=== PATIENT | female | born 1940 | race Caucasian/White ===

== ENCOUNTER 2019-08-04 07:28 | Outpatient (CLI) | payer MEDICARE, OTHER, SELFPAY ==
[2019-08-04 14:39] LABS: Basophils % 0.7 %; Eosinophils # 0.3 10^3/uL (0.0-0.8); Eosinophils % 4.7 %; Hematocrit 43.2 % (37.0-47.0); Hemoglobin 14.1 g/dL (11.5-15.3); Lymphocytes # 1.8 10^3/uL (0.8-4.8); Lymphocytes % 33.5 %; Mean Corpuscular HGB Conc 32.6 g/dL (30.0-36.0); Mean Corpuscular Hemoglobin 28.9 pg (28.0-34.0); Mean Corpuscular Volume 88.5 fL (81-99); Mean Platelet Volume 11.4 fL (7.4-10.4); Monocytes # 0.5 10^3/uL (0.2-0.9); Monocytes % 9.2 %; Neutrophils # 2.8 10^3/uL (1.8-7.7); Neutrophils % 51.7 %; Nucleated Red Blood Cells % 0 %; Platelet Count 297 10^3/cmm (130-400); Red Blood Count 4.88 10^6/uL (4.1-5.3); Red Cell Distribution Width 13.7 % (12.1-15.1); White Blood Count 5.3 10^3/uL (4.0-10.0)
[2019-08-04 16:33] LABS: Carcinoembryonic Antigen 1.7 ng/mL (0.0-4.7)
[2019-08-04 16:46] LABS: Alanine Aminotransferase 19 U/L (0-33); Albumin Level 4.5 g/dL (3.5-5.2); Alkaline Phosphatase 87 IU/L (35-105); Anion Gap 20.6 (5-19); Aspartate Amino Transferase 25 U/L (0-32); Blood Urea Nitrogen 13 mg/dL (8-23); Calcium 9.7 mg/dL (8.5-10.5); Carbon Dioxide 22 mmol/L (22-29); Chloride 98 mmol/L (98-107); Glucose 105 mg/dL (65-115); Osmolality Calculated 279 mOsm/kg (285-295); Potassium 4.6 mmol/L (3.5-5.1); Sodium 136 mmol/L (136-145); Total Bilirubin 0.9 mg/dL (0.15-1.2); Total Protein 7.5 g/dL (6.6-8.7)
== END 2019-08-04 07:29 | disposition home or self-care (01) ==
LOC: ONCMED 14:15
PROVIDERS: Family Provider Family Medicine; PCP Family Medicine; Visit Provider Internal Medicine Medical Oncology
DX: C20 Malignant neoplasm of rectum (principal); D50.9 Iron deficiency anemia, unspecified; E78.5 Hyperlipidemia, unspecified; K21.9 Gastro-esophageal reflux disease without esophagitis; Z95.2 Presence of prosthetic heart valve
CPT/HCPCS: 36415; 80053; 82378; 85025

== ENCOUNTER → 2019-08-21 11:40 | Outpatient (BNVA) | payer MEDICARE, OTHER, SELFPAY | PROVIDERS: PCP Family Medicine; Visit Provider Internal Medicine Cardiovascular Disease | DX: Z95.2 Presence of prosthetic heart valve (principal) | CPT/HCPCS: 85610 ==

== ENCOUNTER → 2019-10-17 10:56 | Outpatient (BNVA) | payer MEDICARE, OTHER, SELFPAY | PROVIDERS: PCP Family Medicine; Visit Provider Internal Medicine Cardiovascular Disease | DX: Z95.2 Presence of prosthetic heart valve (principal) | CPT/HCPCS: 85610 ==

== ENCOUNTER → 2019-10-30 11:15 | Outpatient (BNVA) | payer MEDICARE, OTHER, SELFPAY | PROVIDERS: PCP Family Medicine; Visit Provider Internal Medicine Cardiovascular Disease | DX: Z95.2 Presence of prosthetic heart valve (principal) | CPT/HCPCS: 85610 ==

== ENCOUNTER → 2019-11-06 10:54 | Outpatient (BNVA) | payer MEDICARE, OTHER, SELFPAY | PROVIDERS: PCP Family Medicine; Visit Provider Internal Medicine Cardiovascular Disease | DX: Z95.2 Presence of prosthetic heart valve (principal); I35.8 Other nonrheumatic aortic valve disorders; Z79.01 Long term (current) use of anticoagulants | CPT/HCPCS: 85610 ==

== ENCOUNTER 2020-02-13 13:52 | Outpatient (CLI) | payer MEDICARE, OTHER, SELFPAY ==
[2020-02-13 14:28] LABS: Basophils % 0.8 %; Eosinophils # 0.2 10^3/uL (0.0-0.8); Eosinophils % 3.6 %; Hematocrit 42.4 % (37.0-47.0); Hemoglobin 13.7 g/dL (11.5-15.3); Lymphocytes # 1.6 10^3/uL (0.8-4.8); Lymphocytes % 30.3 %; Mean Corpuscular HGB Conc 32.3 g/dL (30.0-36.0); Mean Corpuscular Hemoglobin 28.8 pg (28.0-34.0); Mean Corpuscular Volume 89.3 fL (81-99); Mean Platelet Volume 10.7 fL (7.4-10.4); Monocytes # 0.4 10^3/uL (0.2-0.9); Monocytes % 6.6 %; Neutrophils % 58.7 %; Nucleated Red Blood Cells % 0 %; Platelet Count 248 10^3/cmm (130-400); Red Blood Count 4.75 10^6/uL (4.1-5.3); Red Cell Distribution Width 13.5 % (12.1-15.1); White Blood Count 5.3 10^3/uL (4.0-10.0)
[2020-02-13 14:46] LABS: Alanine Aminotransferase 29 U/L (0-33); Albumin Level 4.2 g/dL (3.5-5.2); Alkaline Phosphatase 109 IU/L (35-105); Anion Gap 14.6 (5-19); Aspartate Amino Transferase 29 U/L (0-32); Blood Urea Nitrogen 11 mg/dL (8-23); Calcium 8.9 mg/dL (8.5-10.5); Carbon Dioxide 26 mmol/L (22-29); Chloride 99 mmol/L (98-107); Glucose 147 mg/dL (65-115); Osmolality Calculated 282 mOsm/kg (285-295); Potassium 4.6 mmol/L (3.5-5.1); Sodium 135 mmol/L (136-145); Total Bilirubin 0.6 mg/dL (0.15-1.2); Total Protein 7.2 g/dL (6.6-8.7)
--- NOTE | 2020-02-13 17:42 | ONC FU_ITS ---
Dr. Luna Patient Follow-Up Note Patient: Yady Patterson Unit #: [id number]: 1940 Dicatated By: Fer Luna M.D.Date of Visit:Feb 13, 2020 Onc Med Follow-up/Prog Note Chief Complaint: Rectal cancer. 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 In July 2015 she had presented to Dr. Farley with recent onset of rectal bleeding. She had no other associated GI symptoms or other significant complaints. She underwent colonoscopy on 07/24/2015. She was found to have a partially obstructing, large size, malignant appearing mass in the rectum. It was circumferential, measuring 3 x 4 cm. Other findings included 2 small polyps in the distal sigmoid colon and a lesion in the proximal sigmoid colon which was thought to perhaps be an inverted diverticulum, a lipoma, or an unusual haustra. Pathology from the proximal sigmoid colon biopsy showed no mucosal abnormality. The distal sigmoid colon polyp was a tubular adenoma. The rectal mass showed moderately differentiated adenocarcinoma. Contrast enhanced CT abdomen/pelvis on 07/24/2015 was negative for any definite rectal or perirectal abnormalities. There was no evidence of any metastatic disease. Unrelated findings included a large periesophageal hiatal hernia, cholelithiasis, and at L3 vertebral compression fracture. She was referred to Dr. Ruvalcaba in [place]. She was noted to have a large palpable partially obstructing tumor in the distal anterior rectum/anal canal. She had further evaluation with transrectal ultrasound on 08/19/2015. Bimanual exam at that time suggested vaginal involvement, with an area of intense fullness in the area of the tumor on the vaginal side. Ultrasound showed a large tumor from the distal rectum down. It appeared to be at least T3 and even a focal area but was likely felt to be some degree of T4 extension to the vagina. There was no perirectal adenopathy seen. She was subsequently referred here and she underwent neoadjuvant chemoradiation utilizing Xeloda for the chemosensitization. She completed radiation on 10/25/2015 to a total dose of 5040 cGy. At the time she completed treatment, she had become pretty sore in her bottom area, but it resolved uneventfully. During the course of treatment, she did require continual adjustments in her warfarin dosage due to the interaction with Xeloda. Otherwise she tolerated chemotherapy very well. She did develop loose stools towards the end of her radiation, but she had no stomatitis or hand/foot syndrome. She completed radiation on 12/19/2015 she underwent AP resection. The procedure included partial vaginectomy en bloc with the rectal resection. Pathology showed residual low-grade (well differentiated) invasive adenocarcinoma measuring 2.5 x 2.0 x 0.5 cm. The modified tumor regression score was grade 2 with residual carcinoma outgrown by fibrosis. The tumor was noted to invade into but not through the muscularis propria (T2). There was no involvement in 14 lymph nodes. As such her disease post treatment was stage I (ypT2, ypN0, M0). As such, I opted not to attempt postoperative adjuvant chemotherapy. Her medical history is otherwise significant for aortic stenosis for which she underwent aortic valve replacement with a [employer] mechanical valve in April 2007. Her other medical illnesses have been limited to hyperlipidemia and GERD. She has been in excellent general health. A DEXA scan on 08/09/2017 showed evidence of osteoporosis with T score -1.4 in the lumbar spine, -2.6 in the left femoral neck, and -2.3 in the right femoral neck. She is a nonsmoker. INTERIM HISTORY: She had surveillance colonoscopy by Dr. Ruvalcaba on 02/11/2017. There were no abnormal findings. She was recommended to have colonoscopy again in [address] scans on 04/15/2017 showed no evidence of metastatic disease in the chest, abdomen, or pelvis. A large paraesophageal hiatal hernia was noted to be stable. She continued on observation/expectant management. Her surveillance CT scans on 02/02/2019 showed atrophic uterus and ovaries. There was persistent endometrial cavity fluid, but no radiographic evidence of endometrial soft tissue thickening. Overall there was no evidence of neoplastic process in the chest, abdomen, or pelvis. She is seen for a followup visit. She has been feeling good generally. She has good energy and activity tolerance. ECOG score is 0. Appetite also is good. She has no fever, night sweats, or hot flashes. She has had some ongoing problems with depression since her . Her only other significant complaint is that she recently developed some joint changes in her hands. She has a little bit of allergy related sinus symptoms and cough. She does not complain of shortness of breath or chest pain. She has no GI or complaints at this time. She has no focal neurologic symptoms. Medications: Cholecalciferol 1 (2000 Units) Capsule Oral daily, Coumadin (4 mg) Tablet Oral Take as Directed, Coumadin (3 mg) Tablet Oral Take as Directed, LORazepam 1 - 2 (0.5 mg) Tablet Oral t.i.d. PRN, Metoprolol Tartrate 1 Tablet (of 25 mg) Oral b.i.d., Simvastatin 1 Tablet (of 40 mg) Oral daily Allergies: No Known Allergies. Review of Systems: Constitutional - She has good energy and activity tolerance. Appetite is good and weight is stable. No fever, night sweats, or hot flashes. ECOG score is 0, ENMT - She has a little bit of allergy related sinus symptoms. No mouth sores. No sore throat or difficulty swallowing, Hematologic/Lymphatic - She bruises easily, Respiratory - No shortness of breath. She has a little bit of cough. No pleuritic pain or hemoptysis, Cardiovascular - No angina pain. No palpitations, Gastrointestinal - No nausea or vomiting. No heartburn or acid reflux. No diarrhea or constipation. No blood in the stool or black stools, Genitourinary (F) - No dysuria or hematuria. No urinary frequency. No urgency or incontinence, Musculoskeletal - She recently has developed some joint changes in her hands. She has no other joint or bone pain, Integumentary - No skin rash, Neurologic - No headache or dizziness. No numbness or tingling. No other focal neurologic symptoms, Psychiatric - She has had some depression since her . No insomnia. Vital Signs: Performed on Feb 13, 2020 16:14 Height - 63.00 in BP - 170/78 mm(hg) (HIGH) Performed on Feb 13, 2020 15:49 Height - 63.00 in Weight - 159 lbs BSA - 1.75 sq.m BMI - 28.17 Temperature - 97.6 F (LOW) Pulse - 64 /min Respiration - 16 /min BP - 170/100 mm(hg) (HIGH) O2 Sat - 96 % Pain - 0 Physical Examination: Constitutional - She looks good generally, Eyes - Sclerae nonicteric. Conjunctivae clear, ENMT - No lesions noted in the oral cavity, Hematologic/Lymphatic - No cervical, clavicular, or axillary adenopathy, Respiratory - Lungs are clear with good air movement bilaterally, Cardiovascular - Heart rhythm is regular. There is a II/ systolic murmur and there is an accentuated 2nd heart sound. There is no gallop or rub noted, Abdomen - Soft. Liver and spleen are not enlarged. There is no abdominal mass or ascites noted and there is no inguinal adenopathy, Extremities - No edema, Neurologic - No focal neurologic deficits noted. Lab/Imaging: Test performed on Feb 13, 2020 14:05 Sodium 135 mmol/L Potassium 4.6 mmol/L Chloride 99 mmol/L CO2 26 mmol/L Anion Gap 14.6 BUN 11 mg/dL Creatinine 0.9 mg/dL Cr Clearance (Est) 52.1700 mL/min Glucose 147 mg/dL Osmolality - Calculated 282 mOsm/kg Calcium 8.9 mg/dL Protein, Total 7.2 g/dL Albumin 4.2 g/dL Globulin 3.0 g/dL Bilirubin, Total 0.6 mg/dL ALT (SGPT) 29 U/L AST (SGOT) 29 U/L Alkaline Phosphatase 109 IU/L WBC 5.3 10 3/uL RBC 4.75 10 6/uL HGB 13.7 g/dL HCT 42.4 % MCV 89.3 fL MCH 28.8 pg MCHC 32.3 g/dL RDW 13.5 % Platelet Count 248 10 3/cmm MPV 10.7 fL Neutrophils 3.10 10 3/uL Lymphocytes 1.6 10 3/uL Monocytes 0.4 10 3/uL Eosinophils 0.2 10 3/uL Basophils 0.0 10 3/uL Neutrophil % 58.7 % Lymphocyte % 30.3 % Monocyte % 6.6 % Eosinophil % 3.6 % Basophils % 0.8 % NRBC % 0 % Impression: 1. 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 By clinical evaluation her disease appeared to be at least stage IIC (T4, Nx, M0), as there was suspected focal extension to the vagina on her initial evaluation. 2. She was given neoadjuvant chemoradiation utilizing Xeloda for chemosensitization. She completed radiation on 10/25/2015 to a total dose of 5040 cGy. 3. She underwent AP resection on 12/19/2015. Based on that pathology, her disease was posttreatment stage I (ypT2, ypN0, M0). 4. She had associated iron deficiency anemia. Her other medical illnesses include: 5. History of aortic stenosis with [employer] mechanical valve replacement in April 2007. 6. Hyperlipidemia. 7. Hiatal hernia/GERD. 8. History of surgical resection of benign rectal mass in 2007. She has had a good recovery following her surgery in December 2015. As she had posttreatment stage I disease, I opted against any postoperative adjuvant chemotherapy. She is being followed on observation/expectant management. She had negative surveillance colonoscopy on 02/11/2017. Her DEXA scan in August 2017 did show evidence of osteoporosis with mean femoral neck T score -2.4. She declined any further treatment for it. During subsequent follow-up she has been doing well clinically, though she does have elevated blood pressure today. There has been no evidence of recurrence of the rectal cancer. Plan: She remains on observation/expectant management for the rectal cancer. She is due for her annual surveillance CT scans, and those will be scheduled. She is due for her surveillance colonoscopy this year, and she will be scheduling that with Dr. Ruvalcaba or with Dr. Farley. I will just plan to see her again in 1 year. In the meantime, she will follow-up with Dr. Farley for the hypertension. Signed By: Fer Luna M.D. <<Signature on File>>
[2020-02-13 18:10] LABS: Carcinoembryonic Antigen 1.8 ng/mL (0.0-4.7)
== END 2020-02-13 13:53 | disposition home or self-care (01) ==
LOC: ONCMED 13:57
PROVIDERS: PCP Family Medicine; Visit Provider Internal Medicine Medical Oncology
DX: Z08 Encounter for follow-up examination after completed treatment for malignant neoplasm (principal); Z85.048 Personal history of other malignant neoplasm of rectum, rectosigmoid junction, and anus; D50.9 Iron deficiency anemia, unspecified; E78.5 Hyperlipidemia, unspecified; K21.9 Gastro-esophageal reflux disease without esophagitis; Z95.2 Presence of prosthetic heart valve; K44.9 Diaphragmatic hernia without obstruction or gangrene
CPT/HCPCS: 36415; 80053; 82378; 85025; 99214

== ENCOUNTER → 2020-02-26 10:39 | Outpatient (BNVA) | payer MEDICARE, OTHER, SELFPAY | PROVIDERS: PCP Family Medicine; Visit Provider Internal Medicine Cardiovascular Disease | DX: Z95.2 Presence of prosthetic heart valve (principal) | CPT/HCPCS: 85610 ==

== ENCOUNTER 2020-03-04 08:51 | Outpatient (CLI) | payer MEDICARE, OTHER, SELFPAY ==
--- NOTE | 2020-03-04 09:00 | CT_ITS ---
WS: [id number] CT CHEST, ABDOMEN AND PELVIS WITH CONTRAST. HISTORY: RECTAL CANCER TECHNIQUE: Contiguous 5 mm axial imaging performed through the chest, abdomen and pelvis with IV cont rast, oral contrast has been provided. Coronal and sagittal reformats chest. Coronal and sagittal ref ormats through the abdomen and pelvis. All CT scans at [facility] use at least one of the se dose optimization techniques: automated exposure control; mA and/or kV adjustment per patient size (includes targeted exams where dose is matched to clinical indication); or iterative reconstruction. CONTRAST: Omnipaque 300; 95 mL IV. DLP: 2157.33 mGycm COMPARISON: 02/02/2019 and 04/20/[address]: Well aerated lungs. No pulmonary mass or nodule. Subsegmental linear atelectasis in the yasir gula. RIGHT lung benign calcified granulomata. Moderate atherosclerosis thoracic aorta. Normal size p ulmonary artery. Heart size is normal. No pericardial or pleural effusion. Prior median sternotomy. Large incarcerated hiatal hernia. Subcentimeter mediastinal and hilar lymph nodes with no progression . Mild increase in the thoracic kyphosis. Osteopenia with osteoblastic or osteolytic disease. Abdomen CT: No evidence for metastatic disease to the liver. Areas of hepatic steatosis along the fal ciform ligament. Splenic granuloma. Cholelithiasis without acute cholecystitis. No adrenal mass. Nega tive pancreas. No renal obstruction or solid mass. Exophytic cortical cyst measures 6 mm from the mid kidney. Mild atherosclerosis aorta. No adenopathy or ascites. No omental disease. No GI tract obstruction. LEFT lower quadrant colostomy. There is a parastomal hernia containing small bowel. There is contrast within the small bowel loop with no obstruction. Similar findings seen on t he prior study. Fat-containing 1.4 cm nodule in the region of the cecum is probably a lipoma associat ed with the ileocecal valve. Pelvic CT: Uterus is atrophic and small caliber. Distended endometrium with fluid. This was seen on t he prior examinations. May be a component of this cervical stenosis related to the radiation. These f indings have been present for several years. Mild anterior wedging of L3. Degenerative disc disease is moderate at L4-5 and L5-S1. CT/CT chest abd pel w con* IMPRESSION: 1. No evidence for metastatic disease within the chest, abdomen or pelvis. 2. LEFT lower quadrant colostomy with small bowel parastomal hernia. No obstru ction. 3. Cholelithiasis without acute cholecystitis. 4. Atrophic uterus with distended endometrium with fluid. Similar to prior reji dies. Cervical stenosis secondary to prior rectal radiation treatment may be pr esent. 5. Large incarcerated hiatal hernia.
[2020-03-04] MEDS: iohexol 300 mg/mL 50 mL Btl PO (09:29)
[2020-03-04] MEDS: iohexol 300 mg/mL 100 mL Btl IV (10:41)
== END 2020-03-04 08:52 | disposition home or self-care (01) ==
LOC: RADWPI 08:55
PROVIDERS: PCP Family Medicine; Visit Provider Internal Medicine Medical Oncology
DX: C20 Malignant neoplasm of rectum (principal); K44.9 Diaphragmatic hernia without obstruction or gangrene; N85.8 Other specified noninflammatory disorders of uterus; M48.02 Spinal stenosis, cervical region; K80.20 Calculus of gallbladder without cholecystitis without obstruction; K43.5 Parastomal hernia without obstruction or gangrene; Z95.2 Presence of prosthetic heart valve
CPT/HCPCS: 71260; 74177; 85610; Q9967

== ENCOUNTER → 2020-10-21 09:35 | Outpatient (BNVA) | payer MEDICARE, OTHER, SELFPAY | PROVIDERS: PCP Family Medicine; Visit Provider Internal Medicine Cardiovascular Disease | DX: Z79.01 Long term (current) use of anticoagulants (principal); Z95.2 Presence of prosthetic heart valve | CPT/HCPCS: 85610 ==

== ENCOUNTER 2021-02-19 12:51 | Outpatient (CLI) | payer MEDICARE, OTHER, SELFPAY ==
[2021-02-19 13:27] LABS: Basophils % 0.5 %; Eosinophils # 0.2 10^3/uL (0.0-0.8); Eosinophils % 3.3 %; Hematocrit 40.1 % (37.0-47.0); Hemoglobin 13.2 g/dL (11.5-15.3); Lymphocytes # 2.4 10^3/uL (0.8-4.8); Lymphocytes % 41.9 %; Mean Corpuscular HGB Conc 32.9 g/dL (30.0-36.0); Mean Corpuscular Hemoglobin 28.5 pg (28.0-34.0); Mean Corpuscular Volume 86.6 fl (81-99); Mean Platelet Volume 10.4 fL (7.4-10.4); Monocytes # 0.5 10^3/uL (0.2-0.9); Monocytes % 7.9 %; Neutrophils # 2.69 10^3/uL (1.8-7.7); Neutrophils % 46.1 %; Nucleated Red Blood Cells % 0 %; Platelet Count 239 10^3/cmm (130-400); Red Blood Count 4.63 10^6/uL (4.1-5.3); Red Cell Distribution Width 13.6 % (12.1-15.1); White Blood Count 5.8 10^3/uL (4.0-10.0)
[2021-02-19 14:18] LABS: Alanine Aminotransferase 26 U/L (0-33); Albumin Level 4.3 g/dL (3.5-5.2); Alkaline Phosphatase 111 IU/L (35-105); Anion Gap 13.2 (5-19); Aspartate Amino Transferase 25 U/L (0-32); Blood Urea Nitrogen 10 mg/dL (8-23); Calcium 8.6 mg/dL (8.5-10.5); Carbon Dioxide 27 mmol/L (22-29); Chloride 100 mmol/L (98-107); Globulin 2.6 g/dL (1.3-4.6); Glucose 82 mg/dL (65-115); Osmolality Calculated 280 mOsm/kg (285-295); Potassium 4.2 mmol/L (3.5-5.1); Sodium 136 mmol/L (136-145); Total Bilirubin 0.9 mg/dL (0.15-1.2); Total Protein 6.9 g/dL (6.6-8.7)
[2021-02-19 16:01] LABS: Carcinoembryonic Antigen 1.9 ng/mL (0.0-4.7)
--- NOTE | 2021-02-22 16:59 | ONC FU_ITS ---
Dr. Luna Patient Follow-Up Note Patient: Yady Patterson Unit #: [id number]: 1940 Dicatated By: Fer Luna M.D.Date of Visit:Feb 19, 2021 Onc Med Follow-up/Prog Note Chief Complaint: Rectal cancer. 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 In July 2015 she had presented to Dr. Farley with recent onset of rectal bleeding. She had no other associated GI symptoms or other significant complaints. She underwent colonoscopy on 07/24/2015. She was found to have a partially obstructing, large size, malignant appearing mass in the rectum. It was circumferential, measuring 3 x 4 cm. Other findings included 2 small polyps in the distal sigmoid colon and a lesion in the proximal sigmoid colon which was thought to perhaps be an inverted diverticulum, a lipoma, or an unusual haustra. Pathology from the proximal sigmoid colon biopsy showed no mucosal abnormality. The distal sigmoid colon polyp was a tubular adenoma. The rectal mass showed moderately differentiated adenocarcinoma. Contrast enhanced CT abdomen/pelvis on 07/24/2015 was negative for any definite rectal or perirectal abnormalities. There was no evidence of any metastatic disease. Unrelated findings included a large periesophageal hiatal hernia, cholelithiasis, and at L3 vertebral compression fracture. She was referred to Dr. Ruvalcaba in [place]. She was noted to have a large palpable partially obstructing tumor in the distal anterior rectum/anal canal. She had further evaluation with transrectal ultrasound on 08/19/2015. Bimanual exam at that time suggested vaginal involvement, with an area of intense fullness in the area of the tumor on the vaginal side. Ultrasound showed a large tumor from the distal rectum down. It appeared to be at least T3 and even a focal area but was likely felt to be some degree of T4 extension to the vagina. There was no perirectal adenopathy seen. She was subsequently referred here and she underwent neoadjuvant chemoradiation utilizing Xeloda for the chemosensitization. She completed radiation on 10/25/2015 to a total dose of 5040 cGy. At the time she completed treatment, she had become pretty sore in her bottom area, but it resolved uneventfully. During the course of treatment, she did require continual adjustments in her warfarin dosage due to the interaction with Xeloda. Otherwise she tolerated chemotherapy very well. She did develop loose stools towards the end of her radiation, but she had no stomatitis or hand/foot syndrome. She completed radiation on 12/19/2015 she underwent AP resection. The procedure included partial vaginectomy en bloc with the rectal resection. Pathology showed residual low-grade (well differentiated) invasive adenocarcinoma measuring 2.5 x 2.0 x 0.5 cm. The modified tumor regression score was grade 2 with residual carcinoma outgrown by fibrosis. The tumor was noted to invade into but not through the muscularis propria (T2). There was no involvement in 14 lymph nodes. As such her disease post treatment was stage I (ypT2, ypN0, M0). As such, I opted not to attempt postoperative adjuvant chemotherapy. Her medical history is otherwise significant for aortic stenosis for which she underwent aortic valve replacement with a [employer] mechanical valve in April 2007. Her other medical illnesses have been limited to hyperlipidemia and GERD. She has been in excellent general health. A DEXA scan on 08/09/2017 showed evidence of osteoporosis with T score -1.4 in the lumbar spine, -2.6 in the left femoral neck, and -2.3 in the right femoral neck. She is a nonsmoker. INTERIM HISTORY: She had surveillance colonoscopy by Dr. Ruvalcaba on 02/11/2017. There were no abnormal findings. She was recommended to have colonoscopy again in [address] scans on 04/15/2017 showed no evidence of metastatic disease in the chest, abdomen, or pelvis. A large paraesophageal hiatal hernia was noted to be stable. CT scans on 02/02/2019 showed atrophic uterus and ovaries. There was persistent endometrial cavity fluid, but no radiographic evidence of endometrial soft tissue thickening. Overall there was no evidence of neoplastic process in the chest, abdomen, or pelvis. Surveillance CT scans on 03/04/2020 showed no evidence for metastatic disease within the chest, abdomen, or pelvis. She also had negative surveillance colonoscopy in 2019. She is seen for a followup visit. She has been feeling good generally. She has good energy and activity tolerance. ECOG score is 0. Her appetite is good. She has no fever or night sweats. She has occasional allergy related sinus symptoms. She has not had sore mouth or throat. She does have some cough associated with the allergies. She does not complain of shortness of breath or chest pain. She has no GI or complaints. She has joint pain, mainly in her hands. She does not complain of headache or dizziness, and she has no focal neurologic symptoms. Medications: Cholecalciferol 1 (2000 Units) Capsule Oral daily, Coumadin (4 mg) Tablet Oral Take as Directed, Coumadin (3 mg) Tablet Oral Take as Directed, LORazepam 1 - 2 (0.5 mg) Tablet Oral t.i.d. PRN, Metoprolol Tartrate 1 Tablet (of 25 mg) Oral b.i.d., Simvastatin 1 Tablet (of 40 mg) Oral daily Allergies: No Known Allergies. Vital Signs: Performed on Feb 19, 2021 14:50 Height - 63.00 in Weight - 159.6 lbs (HIGH) BSA - 1.76 sq.m BMI - 28.27 Temperature - 97.8 F (LOW) Pulse - 78 /min Respiration - 18 /min BP - 170/85 mm(hg) (HIGH) O2 Sat - 96 % Pain - 0 Fatigue - 0 Physical Examination: Constitutional - She looks good generally, Eyes - Sclerae nonicteric. Conjunctivae clear, ENMT - No lesions noted in the oral cavity, Hematologic/Lymphatic - No cervical, clavicular, or axillary adenopathy, Respiratory - Lungs are clear with good air movement bilaterally, Cardiovascular - Heart rhythm is regular. There is a II/ systolic murmur. There is no gallop or rub noted, Abdomen - Soft. Liver and spleen are not enlarged. There is no abdominal mass or ascites noted and there is no inguinal adenopathy, Extremities - No edema, Neurologic - No focal neurologic deficits noted. Lab/Imaging: Test performed on Feb 19, 2021 13:11 Sodium 136 mmol/L Potassium 4.2 mmol/L Chloride 100 mmol/L CO2 27 mmol/L Anion Gap 13.2 BUN 10 mg/dL Creatinine 0.7 mg/dL Cr Clearance (Est) 70.81 mL/min Glucose 82 mg/dL Osmolality - Calculated 280 mOsm/kg Calcium 8.6 mg/dL Protein, Total 6.9 g/dL Albumin 4.3 g/dL Globulin 2.6 g/dL Bilirubin, Total 0.9 mg/dL ALT (SGPT) 26 U/L AST (SGOT) 25 U/L Alkaline Phosphatase 111 IU/L WBC 5.8 10 3/uL RBC 4.63 10 6/uL HGB 13.2 g/dL HCT 40.1 % MCV 86.6 fl MCH 28.5 pg MCHC 32.9 g/dL RDW 13.6 % Platelet Count 239 10 3/cmm MPV 10.4 fL Neutrophils 2.69 10 3/uL Lymphocytes 2.4 10 3/uL Monocytes 0.5 10 3/uL Eosinophils 0.2 10 3/uL Basophils 0.0 10 3/uL Neutrophil % 46.1 % Lymphocyte % 41.9 % Monocyte % 7.9 % Eosinophil % 3.3 % Basophils % 0.5 % NRBC % 0 % CEA 1.9 ng/mL Problem List: 1. Moderately differentiated adenocarcinoma of the distal rectum. By clinical evaluation her disease appeared to be at least stage IIC (T4, Nx, M0), as there was suspected focal extension to the vagina on her initial evaluation. 2. History of aortic stenosis with [employer] mechanical valve replacement in April 2007. 3. Hyperlipidemia. 4. Hiatal hernia/GERD. 5. History of surgical resection of benign rectal mass in 2007. 6. Her DEXA scan in August 2017 showed evidence of osteoporosis with mean femoral neck T score -2.4. She declined any further treatment for it. 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 By clinical evaluation her disease appeared to be at least stage IIC (T4, Nx, M0), as there was suspected focal extension to the vagina on her initial evaluation. She was given neoadjuvant chemoradiation utilizing Xeloda for chemosensitization. She completed radiation on 10/25/2015 to a total dose of 5040 cGy. She then underwent AP resection on 12/19/2015. Based on that pathology, her disease was posttreatment stage I (ypT2, ypN0, M0). As she had posttreatment stage I disease, I opted against any postoperative adjuvant chemotherapy. She has continued expectant management for the rectal cancer following the surgery. She has been doing well clinically. She is now 5 years out from completion of her treatment with no evidence of recurrence of the rectal cancer and she can just continue regular follow-up with Dr. Farley. I will see her again as needed. Signed By: Fer Luna M.D. <<Signature on File>>
== END 2021-02-19 12:52 | disposition home or self-care (01) ==
LOC: ONCMED 12:54
PROVIDERS: PCP Family Medicine; Visit Provider Internal Medicine Medical Oncology
DX: Z08 Encounter for follow-up examination after completed treatment for malignant neoplasm (principal); Z85.048 Personal history of other malignant neoplasm of rectum, rectosigmoid junction, and anus; E78.5 Hyperlipidemia, unspecified; K44.9 Diaphragmatic hernia without obstruction or gangrene; K21.9 Gastro-esophageal reflux disease without esophagitis; M81.0 Age-related osteoporosis without current pathological fracture; I70.0 Atherosclerosis of aorta; Z79.899 Other long term (current) drug therapy; Z92.21 Personal history of antineoplastic chemotherapy; Z92.3 Personal history of irradiation
CPT/HCPCS: 36415; 80053; 82378; 85025; 99214

== ENCOUNTER 2021-06-02 11:12 | Emergency (ER) | payer OTHER, SELFPAY ==
[2021-06-02 11:27] VITALS: BP 151/79; PULSE 70; RESP 16; TEMP 36.4; O2SAT 92; BMI 27.3
--- NOTE | 2021-06-02 11:34 | ED_ITS ---
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 Patient states she was coming into the emergency department and accidentally tripped over a sign. She reports falling onto her face/hands and sustained abrasions to these areas. She does not really have any pain or discomfort at this time. Last tetanus is unknown. She does not complain of neck or back pain. Patient states she does take warfarin daily. MD complaint: fall Onset (ago): minute(s) Fall from: standing Fall witnessed: yes, by family and yes, by bystander Place fall occurred: work Loss of consciousness: None Prolonged down time: no Symptoms prior to fall: none Context: tripped/slipped Location of injury: face Location of injury - extremities: Right: hand Associated symptoms-after fall: Reports no associated symptoms; Denies chest pain, confusion, headache(s), lightheadedness or vertigo Review of Systems Const: Denies: fever(s) or fatigue Eyes: Denies: change in vision or blurry vision Card: Denies: chest pain, palpitations, lightheadedness, syncope or pre- syncope Resp: Denies: dyspnea GI: Denies: nausea or vomiting Skin/Breast: Reports: other (abrasions) Neuro: Denies: headache(s), numbness in extremities, weakness in extremities, sensory changes, lack of coordination, frequent falls, dizziness, vertigo, confusion, behavioral changes, Slurred speech present, difficulty communicating thoughts or seizure-like activity [facility] ED PFSH: Medical History (Updated 06/02/21 @ 12:19 by TONEY Naidu) HTN (hypertension) Surgical History Aortic valve replaced Family History Mother Hypertension Social History Smoking and tobacco status: never smoked Physical Exam Const: COMMON NORMALS: no acute distress, average body habitus, patient oriented x3, no limitations, healthy appearing, alert and well nourished GENERAL APPEARANCE: cooperative ORIENTATION/CONSCIOUSNESS: Yes awake, Yes oriented to person, Yes oriented to place and Yes oriented to time HENMT: COMMON NORMALS: normocephalic and external ears normal HEAD & SCALP: normal to inspection and normocephalic FACE & SINUS: other (abrasions to forehead and bridge of nose) NOSE: Normal septum present and Other nasal findings present (no bony tenderness; nasal bridge abrasion) EXTERNAL EAR: Yes external ears normal MOUTH: other (no intraoral injuries noted) Eye: GENERAL EYE: appearance normal, both eyes and all related structures Neck/C-Spine: COMMON NORMALS: full ROM GENERAL: Yes normal visual inspection CERVICAL SPINE: Yes cervical ROM normal, No pain with cervical ROM, No Cervical spine tenderness, No step off deformity and No Paracervical muscle tenderness Chest: COMMONS NORMALS: normal inspection of the chest and normal palpation of entire chest wall Resp: COMMON NORMALS: normal respiratory effort and clear to auscultation bilaterally AUSCULTATION: clear to auscultation bilaterally Cardio: COMMON NORMALS: regular rate and regular rhythm RATE: regular rate RHYTHM: regular rhythm Back/Pelvis: COMMON NORMALS: thoracic and lumbar spine normal to inspection, no thoracic nor lumbar tenderness and thoraco-lumbar ROM normal Extremity: COMMON NORMALS: normal to inspection and full ROM GENERAL: Yes normal exam except as noted Neuro: LOGAN COMA SCALE: document GCS findings [place] coma scale eye opening: Spontaneous [place] coma scale verbal response: Orientated [place] coma scale motor response: Obey commands Logan coma scale total score: 15 COMMON NORMALS: patient oriented x3, moves all extremities, no focal motor deficits, no sensory deficits noted and gait normal SENSORIUM/ORIENTATION: Yes alert, Yes oriented to person, Yes oriented to place and Yes oriented to time Skin: TRAUMA: abrasion (R palmar hand, forehead, nose) and no lacerations Course Vital Signs: Vital signs: Vital Signs Temperature 97.5 F L 06/02/21 11:36 Pulse Rate 70 06/02/21 11:36 Respiratory Rate 16 06/02/21 11:36 Blood Pressure 151/79 06/02/21 11:36 Pulse Oximetry 92 06/02/21 11:36 MDM - Fall Medical Decision Making Patient here with abrasions to her forehead, nose, and right hand following a fall. Patient is not having a headache, neck pain, back pain. She has been ambulatory without difficulty since the fall. Patient is on Warfarin so I did go ahead and elect to CT her head which was negative. Abrasions were cleaned and dressed. Wound care discussed at home. Tetanus was updated. Patient is stable for DC with return to ED precautions. Lab Data Radiology Impressions Head CT 06/02/21 11:38 IMPRESSION: 1. No evidence of intracranial hemorrhage or mass effect. 2. Mild small vessel changes. Mild parenchymal volume loss. 3. No acute intracranial findings. Discharge Plan Discharge Patient Disposition: Home Clinical Impression: Fall from slip, trip, or stumble Qualifiers: Encounter type: initial encounter Qualified Code(s): W01.0XXA - Fall on same level from slipping, tripping and stumbling without subsequent striking against object, initial encounter Abrasion of face Qualifiers: Encounter type: initial encounter Qualified Code(s): S00.81XA - Abrasion of other part of head, initial encounter Abrasion of hand, right Qualifiers: Encounter type: initial encounter Qualified Code(s): S60.511A - Abrasion of right hand, initial encounter Condition: Stable Prescriptions: No Action simvastatin 40 mg tablet 40 mg PO DAILY 0RF metoprolol tartrate 25 mg tablet 25 mg PO BID 0RF rabeprazole 20 mg tablet,delayed release (DR/EC) 20 mg PO DAILY 0RF cholecalciferol (vitamin D3) 25 mcg (1,000 unit) capsule 1,000 unit PO DAILY 0RF citalopram 10 mg tablet 10 mg PO DAILY 0RF alprazolam [Xanax] 0.25 mg tablet 0.25 mg PO DAILY PRN0RF warfarin 1 mg tablet 1 mg PO DIRECTED 0RF Protocol: Dose Management Condition: Wednesday Dose/Route: 4 mg Instruction: 1 x 4 mg tablet Condition: Wednesday Dose/Route: 4 mg Instruction: 1 x 4 mg tablet Condition: Wednesday Dose/Route: 4 mg Instruction: 1 x 4 mg tablet Condition: Wednesday Dose/Route: 4 mg Instruction: 1 x 4 mg tablet Condition: Dose/Route: 4 mg Instruction: 1 x 4 mg tablet Condition: Wednesday Dose/Route: 4 mg Instruction: 1 x 4 mg tablet Condition: Wednesday Dose/Route: 4 mg Instruction: 1 x 4 mg tablet Protocol Text: Adjustment Start Date: Wednesday05/28/21 INR Value: 2.1 INR Date: 05/26/21 Recheck Date: 06/04/21 warfarin 4 mg tablet 4 mg PO DAILY Qty: 30 6RF Protocol: Dose Management Condition: Wednesday Dose/Route: 4 mg Instruction: 1 x 4 mg tablet Condition: Wednesday Dose/Route: 4 mg Instruction: 1 x 4 mg tablet Condition: Wednesday Dose/Route: 4 mg Instruction: 1 x 4 mg tablet Condition: Wednesday Dose/Route: 4 mg Instruction: 1 x 4 mg tablet Condition: Dose/Route: 4 mg Instruction: 1 x 4 mg tablet Condition: Wednesday Dose/Route: 4 mg Instruction: 1 x 4 mg tablet Condition: Wednesday Dose/Route: 4 mg Instruction: 1 x 4 mg tablet Protocol Text: Adjustment Start Date: Wednesday05/28/21 INR Value: 2.1 INR Date: 05/26/21 Recheck Date: 06/04/21 warfarin 3 mg tablet 3 mg PO DIRECTED Qty: 90 3RF Protocol: Dose Management Condition: Wednesday Dose/Route: 4 mg Instruction: 1 x 4 mg tablet Condition: Wednesday Dose/Route: 4 mg Instruction: 1 x 4 mg tablet Condition: Wednesday Dose/Route: 4 mg Instruction: 1 x 4 mg tablet Condition: Wednesday Dose/Route: 4 mg Instruction: 1 x 4 mg tablet Condition: Dose/Route: 4 mg Instruction: 1 x 4 mg tablet Condition: Wednesday Dose/Route: 4 mg Instruction: 1 x 4 mg tablet Condition: Wednesday Dose/Route: 4 mg Instruction: 1 x 4 mg tablet Protocol Text: Adjustment Start Date: Wednesday05/28/21 INR Value: 2.1 INR Date: 05/26/21 Recheck Date: 06/04/21 Rx Instructions: Take 1 tablet by mouth as directed; based on INR results Discharge Orders: Discharge ED (Routine); Ordered 06/02/21 Ordered By: Keli Higgins Referrals: Nj Farley MD [Primary Care Provider] - Coding Level of Care Code ED Card Mounter for Paty Pena
[2021-06-02 11:36] VITALS: BP 151/79; PULSE 70; RESP 16; TEMP 36.4; O2SAT 92
--- NOTE | 2021-06-02 11:38 | CT_ITS ---
WS: [id number] CT HEAD TECHNIQUE: Noncontrast CT of the head obtained from the skullbase to the vertex. CLINICAL INFORMATION: trauma COMPARISON: 2006 DLP: 838.[address] scans at [facility] use at least one of these dose optimization techniques: automated e xposure control; mA and/or kV adjustment per patient size (includes targeted exams where dose is matc hed to clinical indication); or iterative reconstruction. FINDINGS: No evidence of intracranial hemorrhage or mass effect. Ventricular system and basal cisterns are to nt. Mild small vessel changes with mild parenchymal volume loss. No extra-axial fluid collections. No evidence of mass or mass effect. Normal sandoval-white differentiation. Mild mucosal thickening paranasal sinuses and RIGHT sphenoid sinus. Mastoid air cells are well aerate d. CT/CT head wo con* [id number] IMPRESSION: 1. No evidence of intracranial hemorrhage or mass effect. 2. Mild small vessel changes. Mild parenchymal volume loss. 3. No acute intracranial findings.
[2021-06-02] MEDS: tetanus-diphtheria tox (adult) 0.5 mL SDV IM (11:44)
== END 2021-06-02 12:33 | disposition home or self-care (01) ==
PROVIDERS: Emergency Provider Physician Assistant; PCP Family Medicine
DX: S00.81XA Abrasion of other part of head, initial encounter (principal); S60.511A Abrasion of right hand, initial encounter; Z79.01 Long term (current) use of anticoagulants; W18.09XA Striking against other object with subsequent fall, initial encounter; Y92.239 Unspecified place in hospital as the place of occurrence of the external cause; Z23 Encounter for immunization
CPT/HCPCS: 70450; 90471; 90714; 99282

== ENCOUNTER → 2021-07-07 08:25 | Outpatient (BNVA) | payer MEDICARE, OTHER, SELFPAY | PROVIDERS: PCP Family Medicine; Visit Provider Internal Medicine Cardiovascular Disease | DX: I35.9 Nonrheumatic aortic valve disorder, unspecified (principal); Z95.2 Presence of prosthetic heart valve; Z79.01 Long term (current) use of anticoagulants | CPT/HCPCS: 36415; 85610 ==

== ENCOUNTER → 2021-07-18 13:25 | Outpatient (BNVA) | payer MEDICARE, OTHER, SELFPAY | PROVIDERS: PCP Family Medicine; Visit Provider Internal Medicine Cardiovascular Disease | DX: Z79.01 Long term (current) use of anticoagulants (principal) ==

== ENCOUNTER → 2021-07-22 16:37 | Outpatient (BNVA) | payer MEDICARE, OTHER, SELFPAY | PROVIDERS: PCP Family Medicine; Visit Provider Internal Medicine Cardiovascular Disease | DX: Z79.01 Long term (current) use of anticoagulants (principal) ==

== ENCOUNTER → 2021-07-31 09:16 | Outpatient (BNVA) | payer MEDICARE, OTHER, SELFPAY | PROVIDERS: PCP Family Medicine; Visit Provider Internal Medicine Cardiovascular Disease | DX: Z79.01 Long term (current) use of anticoagulants (principal) ==

== ENCOUNTER → 2021-08-06 12:52 | Outpatient (BNVA) | payer MEDICARE, OTHER, SELFPAY | PROVIDERS: PCP Family Medicine; Visit Provider Internal Medicine Cardiovascular Disease | DX: Z79.01 Long term (current) use of anticoagulants (principal) ==

== ENCOUNTER → 2021-08-15 10:22 | Outpatient (BNVA) | payer MEDICARE, OTHER, SELFPAY | PROVIDERS: PCP Family Medicine; Visit Provider Internal Medicine Cardiovascular Disease | DX: Z79.01 Long term (current) use of anticoagulants (principal) ==

== ENCOUNTER → 2021-08-18 09:14 | Outpatient (BNVA) | payer MEDICARE, OTHER, SELFPAY | PROVIDERS: PCP Family Medicine; Visit Provider Internal Medicine Cardiovascular Disease | DX: Z79.01 Long term (current) use of anticoagulants (principal) | CPT/HCPCS: 85610 ==

== ENCOUNTER → 2021-08-28 14:59 | Outpatient (BNVA) | payer MEDICARE, OTHER, SELFPAY | PROVIDERS: PCP Family Medicine; Visit Provider Internal Medicine Cardiovascular Disease | DX: Z79.01 Long term (current) use of anticoagulants (principal) ==

== ENCOUNTER → 2021-09-05 10:25 | Outpatient (BNVA) | payer MEDICARE, OTHER, SELFPAY | PROVIDERS: PCP Family Medicine; Visit Provider Internal Medicine Cardiovascular Disease | DX: Z79.01 Long term (current) use of anticoagulants (principal) ==

== ENCOUNTER → 2021-09-10 08:02 | Outpatient (BNVA) | payer MEDICARE, OTHER, SELFPAY | PROVIDERS: PCP Family Medicine; Visit Provider Internal Medicine Cardiovascular Disease | DX: Z79.01 Long term (current) use of anticoagulants (principal) ==

== ENCOUNTER → 2021-09-17 09:40 | Outpatient (BNVA) | payer MEDICARE, OTHER, SELFPAY | PROVIDERS: PCP Family Medicine; Visit Provider Internal Medicine Cardiovascular Disease | DX: Z79.01 Long term (current) use of anticoagulants (principal) ==

== ENCOUNTER → 2021-09-24 16:35 | Outpatient (BNVA) | payer MEDICARE, OTHER, SELFPAY | PROVIDERS: PCP Family Medicine; Visit Provider Internal Medicine Cardiovascular Disease | DX: Z79.01 Long term (current) use of anticoagulants (principal) ==

== ENCOUNTER → 2021-10-02 09:36 | Outpatient (BNVA) | payer MEDICARE, OTHER, SELFPAY | PROVIDERS: PCP Family Medicine; Visit Provider Internal Medicine Cardiovascular Disease | DX: Z79.01 Long term (current) use of anticoagulants (principal) ==

== ENCOUNTER → 2021-10-10 10:28 | Outpatient (BNVA) | payer MEDICARE, OTHER, SELFPAY | PROVIDERS: PCP Family Medicine; Visit Provider Internal Medicine Cardiovascular Disease | DX: Z79.01 Long term (current) use of anticoagulants (principal) ==

== ENCOUNTER → 2021-10-15 08:55 | Outpatient (BNVA) | payer MEDICARE, OTHER, SELFPAY | PROVIDERS: PCP Family Medicine; Visit Provider Internal Medicine Cardiovascular Disease | DX: Z79.01 Long term (current) use of anticoagulants (principal) ==

== ENCOUNTER → 2021-10-22 09:16 | Outpatient (BNVA) | payer MEDICARE, OTHER, SELFPAY | PROVIDERS: PCP Family Medicine; Visit Provider Internal Medicine Cardiovascular Disease | DX: Z79.01 Long term (current) use of anticoagulants (principal) ==

== ENCOUNTER → 2021-10-28 10:29 | Outpatient (BNVA) | payer MEDICARE, OTHER, SELFPAY | PROVIDERS: PCP Family Medicine; Visit Provider Internal Medicine Cardiovascular Disease | DX: Z79.01 Long term (current) use of anticoagulants (principal) ==

== ENCOUNTER → 2021-12-15 09:47 | Outpatient (BNVA) | payer MEDICARE, OTHER, SELFPAY | PROVIDERS: PCP Family Medicine; Visit Provider Internal Medicine Cardiovascular Disease | DX: Z95.2 Presence of prosthetic heart valve (principal) | CPT/HCPCS: 85610 ==

== ENCOUNTER 2022-03-02 08:10 | Outpatient (CLI) | payer MEDICARE, OTHER, SELFPAY ==
[2022-03-02 08:43] LABS: Prothrombin Time (Patient) 48.2 Seconds (12.0-15.1)
[2022-03-02 08:55] LABS: INR 5.23 (0.83-1.21)
== END 2022-03-02 08:11 | disposition home or self-care (01) ==
LOC: LAB 08:13
PROVIDERS: PCP Family Medicine; Visit Provider Internal Medicine Cardiovascular Disease
DX: Z95.2 Presence of prosthetic heart valve (principal)
CPT/HCPCS: 85610

== ENCOUNTER → 2022-05-18 09:30 | Outpatient (BNVA) | payer MEDICARE, OTHER, SELFPAY | PROVIDERS: PCP Family Medicine; Visit Provider Internal Medicine Cardiovascular Disease | DX: Z95.2 Presence of prosthetic heart valve (principal); I10 Essential (primary) hypertension; E78.5 Hyperlipidemia, unspecified | CPT/HCPCS: 99214 ==

== ENCOUNTER → 2022-10-12 10:15 | Outpatient (BNVA) | payer MEDICARE, OTHER, SELFPAY | PROVIDERS: PCP Family Medicine; Visit Provider Internal Medicine Cardiovascular Disease | DX: Z95.2 Presence of prosthetic heart valve (principal) | CPT/HCPCS: 85610 ==

== ENCOUNTER → 2022-11-16 13:49 | Outpatient (BNVA) | payer MEDICARE, OTHER, SELFPAY | PROVIDERS: PCP Family Medicine; Visit Provider Internal Medicine Cardiovascular Disease | DX: E78.5 Hyperlipidemia, unspecified (principal); Z95.2 Presence of prosthetic heart valve; I10 Essential (primary) hypertension; Z79.01 Long term (current) use of anticoagulants | CPT/HCPCS: 99214 ==

== ENCOUNTER → 2022-12-31 09:34 | Outpatient (BNVA) | payer MEDICARE, OTHER, SELFPAY | PROVIDERS: PCP Family Medicine; Visit Provider Internal Medicine Cardiovascular Disease | DX: Z95.2 Presence of prosthetic heart valve (principal) | CPT/HCPCS: 93793 ==

== ENCOUNTER → 2023-05-27 14:49 | Outpatient (BNVA) | payer MEDICARE, OTHER, SELFPAY | PROVIDERS: PCP Family Medicine; Visit Provider Internal Medicine Cardiovascular Disease | DX: Z95.2 Presence of prosthetic heart valve (principal); I10 Essential (primary) hypertension; E78.5 Hyperlipidemia, unspecified; Z79.01 Long term (current) use of anticoagulants | CPT/HCPCS: 99214 ==

== ENCOUNTER 2023-06-07 09:28 | Outpatient (CLI) | payer MEDICARE, OTHER, SELFPAY ==
[2023-06-07 10:49] LABS: INR 2.27 (0.83-1.21); Prothrombin Time (Patient) 25.9 Seconds (12.0-15.1)
== END 2023-06-07 09:29 | disposition home or self-care (01) ==
LOC: LAB 09:32
PROVIDERS: PCP Family Medicine; Visit Provider Internal Medicine Cardiovascular Disease
DX: Z95.2 Presence of prosthetic heart valve (principal)
CPT/HCPCS: 36415; 85610

== ENCOUNTER 2023-07-12 09:16 | Outpatient (CLI) | payer MEDICARE, OTHER, SELFPAY ==
[2023-07-12 10:01] LABS: INR 1.66 (0.8-1.2)
== END 2023-07-12 09:17 | disposition home or self-care (01) ==
LOC: LAB 09:20
PROVIDERS: PCP Family Medicine; Visit Provider Internal Medicine Cardiovascular Disease
DX: Z79.01 Long term (current) use of anticoagulants (principal); Z95.2 Presence of prosthetic heart valve
CPT/HCPCS: 85610

== ENCOUNTER → 2023-11-08 10:06 | Outpatient (BNVA) | payer MEDICARE, OTHER, SELFPAY | PROVIDERS: PCP Family Medicine; Visit Provider Internal Medicine Cardiovascular Disease | DX: Z95.2 Presence of prosthetic heart valve (principal) | CPT/HCPCS: 85610 ==

== ENCOUNTER → 2023-11-09 10:41 | Outpatient (BNVA) | payer MEDICARE, OTHER, SELFPAY | PROVIDERS: PCP Family Medicine; Visit Provider Nurse Practitioner Family | DX: I10 Essential (primary) hypertension (principal); Z95.2 Presence of prosthetic heart valve; Z79.01 Long term (current) use of anticoagulants | CPT/HCPCS: 99213 ==

== ENCOUNTER 2023-12-01 14:29 | Outpatient (CLI) | payer MEDICARE, OTHER, SELFPAY | END 2023-12-01 14:30 | disposition home or self-care (01) | LOC: RAD 12-08 15:48 | PROVIDERS: PCP Family Medicine; Visit Provider Internal Medicine Cardiovascular Disease | DX: Z95.2 Presence of prosthetic heart valve (principal); I65.23 Occlusion and stenosis of bilateral carotid arteries; I10 Essential (primary) hypertension; E78.5 Hyperlipidemia, unspecified; Z79.01 Long term (current) use of anticoagulants | CPT/HCPCS: 99214 ==

== ENCOUNTER 2024-01-10 13:16 | Outpatient (CLI) | payer MEDICARE, OTHER, SELFPAY ==
--- NOTE | 2024-01-10 13:20 | USCV_ITS ---
Yady Patterson Age: 83 Gender: F : 1940 Exam Date: 01/10/2024 13:37 Ordering Phys: Jenaro Calles MD ([email or web address]) Technologist: SCOTT Exam Location: [facility] [place] Indication: Stenosis Risk Factors: Previous Vascular Surgery: Right Brachial BP: / Left Brachial BP: / Right Left Velocity (cm/s) Spectral Plaque Velocity (cm/s) Spectral Plaque Syst/Diast Broadening Syst/Diast Broadening 73.20/ 11.80 Prox CCA 109.20/ 12.50 75.20/ 14.90 Mid CCA 108.70/ 21.60 89.30/ 19.30 Distal CCA 108.70/ 19.40 43.50/ 9.60 Prox ICA 51.50 / 9.50 66.70/ 15.40 Mid ICA 75.80 / 20.30 52.10/ 10.40 Distal ICA 65.10 / 12.90 77.40 ECA 87.70 0.70 ICA/CCA 0.70 Antegrade Vertebral Antegrade 42.40/ 7.90 cm/s 62.90/ 0.00 cm/s Tri Subclavian Tri 114.1 169.8 0 0 FINDINGS Comparison: none available. No significant elevation of systolic or diastolic velocities. Waveforms are normal. Minimal bilateral, atherosclerosis with no elevation of velocity. CONCLUSIONS Bilateral ICA stenosis less than 50%. Dr. Rita Laguerre DO (Electronically Signed) Final Date: 10 January 2024 16:19 S
== END 2024-01-10 13:17 | disposition home or self-care (01) ==
LOC: RAD 13:16
PROVIDERS: PCP Family Medicine; Visit Provider Internal Medicine Cardiovascular Disease
DX: I65.23 Occlusion and stenosis of bilateral carotid arteries
CPT/HCPCS: 93880

== ENCOUNTER 2024-02-07 10:03 | Outpatient (CLI) | payer MEDICARE, OTHER, SELFPAY ==
[2024-02-07 10:34] LABS: INR 4.56 (0.83-1.21)
== END 2024-02-07 10:04 | disposition home or self-care (01) ==
LOC: LAB 10:04
PROVIDERS: PCP Family Medicine; Visit Provider Internal Medicine Cardiovascular Disease
DX: Z95.2 Presence of prosthetic heart valve (principal)
CPT/HCPCS: 36415; 85610

== ENCOUNTER 2024-02-14 13:25 | Outpatient (CLI) | payer MEDICARE, OTHER, SELFPAY ==
[2024-02-14 14:13] LABS: INR 4.91 (0.83-1.21); Prothrombin Time (Patient) 47.7 Seconds (12.0-15.1)
== END 2024-02-14 13:26 | disposition home or self-care (01) ==
LOC: LAB 13:28
PROVIDERS: PCP Family Medicine; Visit Provider Internal Medicine Cardiovascular Disease
DX: Z95.2 Presence of prosthetic heart valve (principal)
CPT/HCPCS: 36415; 85610

== ENCOUNTER → 2024-05-29 11:03 | Outpatient (BNVA) | payer MEDICARE, OTHER, SELFPAY | PROVIDERS: PCP Family Medicine; Visit Provider Nurse Practitioner Family | DX: Z95.2 Presence of prosthetic heart valve (principal); I10 Essential (primary) hypertension; E78.5 Hyperlipidemia, unspecified; Z79.01 Long term (current) use of anticoagulants | CPT/HCPCS: 99214 ==

== ENCOUNTER 2024-07-10 08:17 | Outpatient (CLI) | payer MEDICARE, OTHER, SELFPAY ==
[2024-07-10 08:59] LABS: INR 1.14 (0.83-1.21); Prothrombin Time (Patient) 15.4 Seconds (12.0-15.1)
== END 2024-07-10 08:18 | disposition home or self-care (01) ==
LOC: LAB 08:20
PROVIDERS: PCP Family Medicine; Visit Provider Internal Medicine Cardiovascular Disease
DX: Z95.2 Presence of prosthetic heart valve (principal)
CPT/HCPCS: 36415; 85610

== ENCOUNTER 2024-07-17 08:30 | Outpatient (CLI) | payer MEDICARE, OTHER, SELFPAY ==
[2024-07-17 09:25] LABS: INR 1.92 (0.83-1.21); Prothrombin Time (Patient) 23.2 Seconds (12.0-15.1)
== END 2024-07-17 08:31 | disposition home or self-care (01) ==
LOC: LAB 08:32
PROVIDERS: PCP Family Medicine; Visit Provider Internal Medicine Cardiovascular Disease
DX: Z95.2 Presence of prosthetic heart valve (principal)
CPT/HCPCS: 36415; 85610

== ENCOUNTER → 2024-12-07 13:48 | Outpatient (BNVA) | payer MEDICARE, OTHER, SELFPAY | PROVIDERS: PCP Family Medicine; Visit Provider Internal Medicine Cardiovascular Disease | DX: I65.23 Occlusion and stenosis of bilateral carotid arteries (principal); I10 Essential (primary) hypertension; E78.5 Hyperlipidemia, unspecified; Z79.01 Long term (current) use of anticoagulants; Z95.2 Presence of prosthetic heart valve | CPT/HCPCS: 99214 ==

== ENCOUNTER 2025-01-29 08:04 | Outpatient (CLI) | payer MEDICARE, OTHER, SELFPAY ==
[2025-01-29 09:31] LABS: INR 2.74 (0.83-1.21)
== END 2025-01-29 08:05 | disposition home or self-care (01) ==
PROVIDERS: PCP Family Medicine; Visit Provider Internal Medicine Cardiovascular Disease
DX: Z95.2 Presence of prosthetic heart valve (principal)
CPT/HCPCS: 36415; 85610

== ENCOUNTER → 2025-03-19 10:26 | Outpatient (BNVA) | payer MEDICARE, OTHER, SELFPAY | PROVIDERS: PCP Family Medicine; Visit Provider Internal Medicine Cardiovascular Disease | DX: Z95.2 Presence of prosthetic heart valve (principal) | CPT/HCPCS: 85610 ==

== ENCOUNTER → 2025-03-26 10:08 | Outpatient (BNVA) | payer MEDICARE, OTHER, SELFPAY | PROVIDERS: PCP Family Medicine; Visit Provider Internal Medicine Cardiovascular Disease | DX: Z95.2 Presence of prosthetic heart valve (principal) | CPT/HCPCS: 85610 ==